=== PATIENT | male | born 1930 | race Caucasian/White ===

== ENCOUNTER 2017-12-15 12:33 | Day surgery (SDC) | payer OTHER ==
[~2017-12-15 12:33] MED LIST: AMOX-367 PO; ASPI-515 PO; ATEN25TA PO; CHOL100011 PO; CIPR10DR LEFT EAR; CYAN10005 PO; FURO-92 PO; LEUP3.75 INJ; LISI-170 PO; MECL25TA2 PO; OMEG500C PO; RIVA20TA PO; SIMV20TA3 PO; TIOT18CA INH
[2017-12-15] MEDS ORDERED: MIDAZOLAM 1 MG/ML, 5ML ONE (13:56)
[2017-12-15] MEDS ORDERED: FENTANYL PF 100 MCG/2ML ONE (13:56)
[2017-12-15] MEDS ORDERED: NALOXONE 1 MG/ML, 2ML ONE (13:57)
[2017-12-15] MEDS ORDERED: FLUMAZENIL 0.1 MG/1 ML, 5ML ONE (13:57)
[2017-12-15] MEDS ORDERED: LIDOCAINE-MPF 1%, 2ML ONE (13:58)
== END 2017-12-15 14:55 ==
LOC: OUT 12:33
PROVIDERS: ATTEND Urology
DX: Z45.2 Encounter for adjustment and management of vascular access device (principal); C61 Malignant neoplasm of prostate; J44.9 Chronic obstructive pulmonary disease, unspecified
CPT/HCPCS: 36589; 77001; J2250; J3010; J3490; J2310; J7030